=== PATIENT | male | born 1980 | race Caucasian/White ===

== ENCOUNTER 2020-11-11 15:35 | Outpatient (CLI) | payer OTHER, SELFPAY ==
[2020-11-11 16:28] LABS: SARS-CoV-2 Ag Negative (Negative)
== END 2020-11-11 15:36 | disposition home or self-care (01) ==
LOC: CHSLAB 15:42
PROVIDERS: PCP Internal Medicine; Visit Provider Internal Medicine
DX: R09.81 Nasal congestion (principal); Z20.828 Contact with and (suspected) exposure to other viral communicable diseases
CPT/HCPCS: 87426

== ENCOUNTER 2021-03-27 15:00 | Outpatient (CLI) | payer OTHER, SELFPAY ==
--- NOTE | ~2021-03-27 | XR_ITS ---
XR lumbar spine 2-3V 03/27/2021 15:14 Indication: Low back pain for 3 days Procedure: 3 views lumbar spine Comparison: No prior studies for comparison. Findings: Mild levocurvature of the lumbar spine. There is disc narrowing at L5-S1. 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 No acute fracture is identified. Impression: 1: Mild lumbar spondylosis with grade 2 spondylolisthesis at L5-S1. Reviewed, dictated and finalized at location B. Impression: 1: Mild lumbar spondylosis with grade 2 spondylolisthesis at L5-S1.
== END 2021-03-27 15:01 | disposition home or self-care (01) ==
LOC: CHSIMG 15:02
PROVIDERS: PCP Internal Medicine; Visit Provider Nurse Practitioner Family
DX: M54.5 Low back pain (principal)
CPT/HCPCS: 72100

== ENCOUNTER 2022-10-03 12:50 | Emergency (ER) | payer OTHER, SELFPAY ==
--- NOTE | ~2022-10-03 | CT_ITS ---
EXAMINATION: CT abdomen pelvis wo con DATE: 10/03/2022 15:02 INDICATION: RLQ abd pain SINCE THIS AM. RBC's in urine TECHNIQUE: Computed tomography (CT) of the abdomen and pelvis was performed without intravenous contr ast. Automated exposure control and iterative reconstruction technique were employed. The dose-length product was 1061.66 mGy-cm. COMPARISON: None. FINDINGS: Lower thorax: 4 mm peripheral right lower lobe nodule, likely lymph node. Mild aortic valve calcifica tion. In the right lung base. Bibasilar atelectasis. Gynecomastia. Liver: Enlarged. Diffuse fatty infiltration. Biliary/Gallbladder: Gallbladder is normal. No bile duct dilation. Pancreas: No mass or duct dilation. Spleen: Normal. Adrenals:No mass. Kidneys: No suspicious mass. Moderate right perinephric stranding. Mild right hydronephrosis. 4 mm no nobstructing right midpole calcification. GI tract: No small or large bowel dilation. Normal appendix. Mesentery/Peritoneum: No ascites, mass, or free air. Retroperitoneum: No mass. Pelvis: 3 mm stone at the right UVJ. Partially filled bladder. Mild bladder wall thickening and infla mmation. Enlarged prostate. Soft Tissues: Small uncomplicated fat-containing umbilical and left inguinal hernias Bones: No acute osseous finding. Grade 1 anterolisthesis and bilateral pars defects at L5-S1. IMPRESSION: 3 mm right UVJ stone causing mild obstructive uropathy. Hepatomegaly. Steatosis. [facility] IMPRESSION: 3 mm right UVJ stone causing mild obstructive uropathy. Hepatomegaly. Steatosis .
[2022-10-03 13:09] VITALS: BP 163/99; PULSE 76; RESP 24; TEMP 36.6; O2SAT 98
--- NOTE | 2022-10-03 13:20 | ED.ABDPAIN ---
HPI - Abdominal Pain General Chief Complaint: Abdominal Pain Stated Complaint: right side severe pain Time Seen by Provider: 10/03/22 13:20 Source: patient and RN notes reviewed Mode of arrival: ambulatory Limitations: no limitations History of Present Illness MD elicited complaint: abdominal pain Pertinent past history: none Onset (ago): hour(s) (10) Pain Consistency: constant Location: RLQ Severity: moderate Quality: stabbing and sharp Radiation: RLQ Migration to: no migration Exacerbating factors: nothing Relieving factors: nothing Associated symptoms: vomiting, diarrhea, chills ( and hot flashes) and dysuria ( only urgency and small amounts of urine) Related Data Allergies Allergy/AdvReac Type Severity Reaction Status Date / Time No Known Allergies Allergy Verified 10/03/22 15:15 Review of Systems Review of Systems: All systems reviewed & are unremarkable except as noted in HPI and below PMFSH Past Medical History Medical History (Updated 10/03/22 @ 15:32 by Iraj Gautam MD) Kidney stones Surgical History Surgical History (Updated 10/03/22 @ 13:54 by Iraj Gautam MD) No pertinent past surgical history Social History Social History (Updated 10/03/22 @ 13:54 by Iraj Gautam MD) Smoking status: Never smoker Substance use: never Exam Const: General: no acute distress, alert and ill appearing ( appears in pain) acutely Nutritional Appearance: well nourished and obese centrally obese Orientation/consciousness: patient oriented x3 Limitations: no limitations HENMT: Head: normal to inspection Ears: external ears normal Face/Nose/Sinus: Normal external nose present Face and sinus: normal facial exam Mouth: Yes moist mucous membranes Eyes: Conjunctivae: conjunctivae normal Pupils: Equal, round and reactive pupils present EOM: EOMs intact bilaterally Neck: Neck: normal visual inspection Resp: Effort & Inspection: normal respiratory effort Auscultation: clear to auscultation bilaterally Cardio: Rate: regular rate Rhythm: regular rhythm GI: GI Palp: Yes Soft to palpation, Yes Tenderness to palpation present (GI) ( moderate right lower quadrant), Yes Guarding due to palpation present (GI) ( mild right lower quadrant) and No Rebound tenderness present Auscultation: normal bowel sounds Back/Spine/Pelvis: Back: no CVA tenderness Cervical Spine: cervical ROM normal Thoracic/Lumbar Spine: thoraco-lumbar ROM normal Skin: General skin exam: normal color Rashes: no rashes Wounds: no wounds Neuro: General: patient oriented x3, moves all extremities, no focal motor deficits and CN's II-XI intact bilaterally Speech: normal speech Gait exam (Neuro): Normal gait present Extrem: General: normal to inspection and no clubbing, cyanosis or edema Psych: Mental Status: mental status grossly normal Affect: normal affect Attitude: cooperative Course Vital Signs Vital signs: Vital Signs Temperature 36.6 C 10/03/22 13:09 Pulse Rate 76 10/03/22 13:09 Respiratory Rate 24 H 10/03/22 13:09 Blood Pressure 163/99 H 10/03/22 13:09 Pulse Oximetry 98 10/03/22 13:09 Oxygen Delivery Room Air 10/03/22 13:09 Temperature 36.6 C 10/03/22 15:33 Pulse Rate 86 10/03/22 15:33 Respiratory Rate 20 10/03/22 15:33 Blood Pressure 157/91 H 10/03/22 15:33 Pulse Oximetry 97 10/03/22 15:33 Oxygen Delivery Room Air 10/03/22 15:33 MDM - Abdominal Pain Differential Diagnosis Differential diagnosis: Likely acute appendicitis, calculus of kidney, diverticulitis and small bowel obstruction Lab Data Attestation: I reviewed the patient's lab results. Result diagrams: 10/03/22 13:45 10/03/22 13:45 Labs: Lab Results 10/03/22 10/03/22 10/03/22 Range/Units 13:45 13:45 13:45 WBC 17.4 H (4.8-10.8) K/mm3 RBC 5.04 (4.70-6.10) M/mm3 Hgb 14.0 (14.0-18.0) g/dL Hct 43.0 (40.0-54.0) % MCV 85.3 (78.0-102.0) fL MCH 27.8 (2
[2022-10-03 13:47] LABS: Basophils Absolute Auto 0.05 K/mm3 (0.00-0.10); Basophils Percent Auto 0.3 % (0.0-1.0); Eosinophils Absolute Auto 0.01 K/mm3 (0.02-0.50); Eosinophils Percent Auto 0.1 % (1.0-6.0); Immature Granulocyte Absolute 0.19 K/mm3 (0.00-0.00); Immature Granulocyte Percent A 1.1 % (0.0-0.0); Lymphocytes Absolute Auto 0.87 K/mm3 (1.10-4.50); Mean Corpuscular HGB Conc 32.6 g/dL (32.0-36.0); Mean Corpuscular Hemoglobin 27.8 pg (27.0-31.0); Mean Corpuscular Volume 85.3 fL (78.0-102.0); Mean Platelet Volume 9.8 fl (8.7-11.0); Monocytes Absolute Auto 0.78 K/mm3 (0.10-0.90); Monocytes Percent Auto 4.5 % (2.0-11.0); Neutrophils Absolute Auto 15.5 K/mm3 (1.7-7.2); Platelet Count Result 388 K/mm3 (150-420); Red Blood Count 5.04 M/mm3 (4.70-6.10); Red Cell Distribution Width 13.8 % (11.6-14.4); White Blood Count 17.4 K/mm3 (4.8-10.8)
[2022-10-03 14:06] LABS: Alanine Aminotransferase 68 U/L (16-63); Albumin Level 4.5 g/dL (3.4-5.0); Alkaline Phosphatase 69 U/L (46-116); Anion Gap 15 mmol/L (8-16); Aspartate Amino Transferase 21 U/L (15-37); Bilirubin,Total 0.8 mg/dL (0.00-1.00); Blood Urea Nitrogen 15 mg/dL (7-18); CRP 0.5 mg/dL (0.0-0.9); Calcium 9.6 mg/dL (8.5-10.1); Carbon Dioxide 22 mmol/L (21-32); Chloride 103 mmol/L (98-108); Estimated CRCL calculation 66 ml/min; Estimated Glomerular Filt Rate 42; Glucose 132 mg/dL (70-99); Lipase 87 U/L (73-393); Osmolality Calculated 292 mOsm/kg (285-295); Potassium 4.7 mmol/L (3.5-5.1); Sodium 140 mmol/L (136-145); Total Protein 8.1 g/dL (6.4-8.2)
[2022-10-03 14:09] LABS: Lactic Acid Reflex 3.5 mmol/L (0.4-2.0)
--- NOTE | 2022-10-03 14:21 | PC.NURSE ---
1400 pt given ice chips, 1420 tolerating ice chips
--- NOTE | 2022-10-03 14:26 | PC.NURSE ---
pt resting per cot, no complaint of pain, states im almost asleep.
[2022-10-03 14:28] LABS: Add Urine Microscopic? YES; Bilirubin Urine Negative (Negative); Blood Urine 3+ (Negative); Color Urine Yellow (Yellow); Glucose Urine UA Negative (Negative); Ketones Urine 2+ (Negative); Leukocyte Esterase Ur Negative LEU/UL (Negative); Nitrate Urine Negative (Negative); Protein Urine Trace (Negative); Urobilinogen Urine 0.2 mg/dL (0.2-1.0)
[2022-10-03 14:37] LABS: Amorphous Sediment Urine Heavy; Appearance Urine Slightly Cloudy (Clear); Bacteria Urine 1+ /hpf; Mucus Urine Heavy /lpf; Squamous Epithelial Cell Urine Occasional /hpf (Few)
[2022-10-03] MEDS: KETOROLAC 30 MG/ML VIAL (*BKC) IV PUSH (15:26)
[2022-10-03] MEDS: TAMSULOSIN HCL 0.4 MG CAPSULE PO (15:31)
[2022-10-03 15:33] VITALS: BP 157/91; PULSE 86; RESP 20; TEMP 36.6; O2SAT 97
[2022-10-03 16:46] LABS: Reflex Lactic Acid Yes or No Add Lactic
== END 2022-10-03 15:44 | disposition home or self-care (01) ==
PROVIDERS: Emergency Provider Emergency Medicine; PCP Internal Medicine
DX: N20.1 Calculus of ureter (principal)
CPT/HCPCS: 36415; 74176; 80053; 81001; 83605; 83690; 85025; 86140; 96374; 99284; A9270; J1885

== ENCOUNTER 2024-03-03 13:14 | Emergency (ER) | payer OTHER, SELFPAY ==
--- NOTE | ~2024-03-03 | CT_ITS ---
EXAMINATION: CT abdomen pelvis wo con DATE: 03/03/2024 13:58 INDICATION: Right lower quadrant abdominal pain, nausea and vomiting for one day TECHNIQUE: Computed tomography (CT) of the abdomen and pelvis was performed without intravenous contr ast. Automated exposure control and iterative reconstruction technique were employed. Exam dose: 956 .07 mGy-cm total exam DLP. COMPARISON: 10/03/2022 CT abdomen pelvis FINDINGS: There is minimal infiltrate or atelectasis in both dependent basilar lower lobes. Normal heart size. No pericardial or pleural effusion. Small sliding hiatal hernia. There is diffuse hepatic steatosis, with minimal sparing in the area around the gallbladder. No hepat ic, splenic, pancreatic, and adrenal or renal space-occupying mass lesion is evident on this limited noncontrast examination. The gallbladder appears unremarkable. No bile duct or pancreatic duct dilatation. There is an approximately 3.6 mm distal right ureteral calculus with moderate right hydroureteronephr osis and right perinephric stranding. No other urinary tract calculus. Normal caliber of the abdominal aorta. No intraperitoneal or retroperitoneal or pelvic mass lesion or adenopathy or ascites. The urinary bladder and prostate gland are unremarkable. Small fat-containing left inguinal hernia. Small fat-containing umbilical hernia. No evidence of appendicitis. No bowel obstruction or intraperitoneal free air. Bilateral L5 pars interarticularis defects with grade 1 anterolisthesis at L5-S1 Moderately severe degenerative disc disease at L5-S1. IMPRESSION: 3.6 mm distal right ureteral calculus with moderate right hydroureteronephrosis, right p erinephric stranding Reviewed, dictated and finalized at [facility]. Reviewed, dictated and finalized at location A. IMPRESSION: 3.6 mm distal right ureteral calculus with moderate right hydroure teronephrosis, right perinephric stranding
[2024-03-03 13:14] VITALS: BP 162/89; PULSE 93; RESP 18; TEMP 36.8; O2SAT 97
--- NOTE | 2024-03-03 13:28 | ED.ABDPAIN ---
HPI - Abdominal Pain General Chief Complaint: Abdominal Pain Stated Complaint: abd pain Source: patient Mode of arrival: ambulatory Limitations: no limitations History of Present Illness HPI narrative: 43-year-old white male complains right lower quadrant the John pain it started this morning associated with nausea and vomiting no problems urinating. Last bowel movement was normal this morning. Feels like a kidney stone that he had like the last time he was here. Denies any cough fever sore throat runny nose problems voiding or stooling. Dizziness or lightheadedness or any other complaints. Related Data Allergies Allergy/AdvReac Type Severity Reaction Status Date / Time No Known Allergies Allergy Verified 03/03/24 13:17 Review of Systems Review of Systems: All systems reviewed & are unremarkable except as noted in HPI and below PMFSH Past Medical History Medical History Kidney stones Surgical History Surgical History No pertinent past surgical history Social History Social History Smoking status: Never smoker Substance use: never Comments history kidney stone 3 mm in 2021 Exam Narrative: White male patient with no apparent distress.? Head normocephalic, atraumatic.? Eyes conjunctiva pink sclera nonicteric.? Extraocular movements are intact.? Ears externally normal.? Oropharynx is clear with moist mucous membranes without exudates.? Neck is supple nontender no lymphadenopathy.? Back is nontender.? Lungs are clear.? Heart is regular rate and rhythm without murmurs gallops or rubs.? Chest wall nontender.? Back is nontender. Abdomen is soft and with tenderness to the right lower quadrant without rebound. Negative Olmedo sign, no hepatosplenomegaly or masses no CVA tenderness no abdominal bruits.? Extremities no cyanosis clubbing or edema.? Skin is warm and dry without rashes or lesions.? Neurological patient is alert and oriented x4.? Motor and sensory grossly intact.? Gait is normal. Course Vital Signs Vital signs: Vital Signs Temperature 36.8 C 03/03/24 13:14 Pulse Rate 93 03/03/24 13:14 Respiratory Rate 18 03/03/24 13:14 Blood Pressure 162/89 H 03/03/24 13:14 Pulse Oximetry 97 03/03/24 13:14 Oxygen Delivery Room Air 03/03/24 13:14 Temperature 37.6 C H 03/03/24 14:35 Pulse Rate 92 03/03/24 14:35 Respiratory Rate 18 03/03/24 14:35 Blood Pressure 148/87 H 03/03/24 14:35 Pulse Oximetry 100 03/03/24 14:35 Oxygen Delivery Room Air 03/03/24 14:35 MDM - Abdominal Pain MDM Narrative Medical decision making narrative: Patient was placed in Room # Four normal lipase, wbc's 17.6 rest of CMP was normal. BUN was 19 creatinine 1.73 rest her CMP was normal. Urinalysis showed 3-5 rbc's with trace bacteria CT abdomen pelvis without contrast showed:3.6 mm distal right ureteral calculus with moderate right hydroureteronephrosis, right perinephric stranding Independent Historian: patient External Source Review: CT scan from 2021 Differential Dx includes but not limited to: UTI cholelithiasis appendicitis Medications were Reviewed: home meds reviewed Independently Interpreted by me: Meds, treatment, ED course: Toradol 30 mg Pain is down to a 0201 at discharge Social Situation Impacting Patients Care: previous kidney stone Shared decision Making: evaluation was discussed all questions were asked and answered and patient agreed with the plan. You take Toradol 10 mg every 6 hours and/or Zofran for nausea vomiting and follow-up with his primary care provider strain his urine collect any stone and take it to the provider for analysis. He will increase his fluids by mouth. Would take Cipro 250 twice a day for 3 days. DISCHARGE DIAGNOSIS: 3.6 mm distal right ureteral calculus with moderate right hydro
[2024-03-03 13:58] LABS: Appearance Urine Clear (Clear); Bilirubin Urine Negative (Negative); Blood Urine Trace-intact (Negative); Color Urine Light Yellow (Yellow); Glucose Urine UA Negative (Negative); Ketones Urine Negative (Negative); Leukocyte Esterase Ur Negative LEU/UL (Negative); Nitrate Urine Negative (Negative); Protein Urine Negative (Negative); Urobilinogen Urine 0.2 mg/dL (0.2-1.0)
[2024-03-03] MEDS: KETOROLAC 30 MG/ML VIAL (*BKC) IM (14:01)
[2024-03-03 14:12] LABS: Hematocrit 45.5 % (40.0-54.0); Hemoglobin 14.4 g/dL (14.0-18.0); Mean Corpuscular HGB Conc 31.6 g/dL (32-36); Mean Corpuscular Hemoglobin 27.4 pg (27.0-31.0); Mean Corpuscular Volume 86.5 fL (78.0-102.0); Mean Platelet Volume 9.7 fl (8.7-11.0); Platelet Count Result 373 K/mm3 (150-420); Red Blood Count 5.26 M/mm3 (4.70-6.10); Red Cell Distribution Width 13.5 % (11.6-14.4); White Blood Count 17.6 K/mm3 (4.8-10.8)
[2024-03-03 14:15] LABS: Add Urine Microscopic? YES; Bacteria Urine Trace /hpf; Squamous Epithelial Cell Urine Rare /hpf (Few); WBC Urine None seen /hpf (0-3)
[2024-03-03 14:28] LABS: Alanine Aminotransferase 41 U/L (16-63); Albumin Level 4.5 g/dL (3.4-5.0); Alkaline Phosphatase 79 U/L (46-116); Anion Gap 15 mmol/L (4-12); Aspartate Amino Transferase 17 U/L (15-37); Bilirubin,Total 0.7 mg/dL (0.00-1.00); Blood Urea Nitrogen 19 mg/dL (7-18); Calcium 9.7 mg/dL (8.5-10.1); Carbon Dioxide 24 mmol/L (21-32); Chloride 101 mmol/L (98-108); Estimated Glomerular Filt Rate 44; Glucose 118 mg/dL (70-99); Lipase 30 U/L (16-77); Osmolality Calculated 293 mOsm/kg (285-295); Potassium 4.9 mmol/L (3.5-5.1); Sodium 140 mmol/L (136-145); Total Protein 8.1 g/dL (6.4-8.2)
[2024-03-03 14:35] VITALS: BP 148/87; PULSE 92; RESP 18; TEMP 37.6; O2SAT 100
== END 2024-03-03 15:35 | disposition home or self-care (01) ==
PROVIDERS: Emergency Provider Emergency Medicine; PCP Internal Medicine
DX: N20.1 Calculus of ureter (principal)
CPT/HCPCS: 36415; 74176; 80053; 81001; 83690; 85027; 96372; 99284; J1885

== ENCOUNTER 2024-03-08 14:06 | Outpatient (CLI) | payer OTHER, SELFPAY ==
--- NOTE | ~2024-03-08 | US_ITS ---
US retroperitoneal comp 03/08/2024 14:56 Procedure: Realtime transabdominal ultrasound of the kidneys and bladder. Indication: Distal right ureteral stone seen on prior examination Comparison: CT dated 03/03/2024 Findings: Renal echotexture is normal bilaterally without contour deforming mass or renal calculus. T here is mild right hydronephrosis. The right kidney measures 13.3 cm and left kidney measures 12.3 cm . Bladder within normal limits. Right ureteral jet not visualized. Impression: 1: Mild right hydronephrosis. Reviewed, dictated and finalized at location A. Impression: 1: Mild right hydronephrosis.
[2024-03-08 15:09] LABS: Alanine Aminotransferase 37 U/L (16-63); Albumin Level 4.2 g/dL (3.4-5.0); Alkaline Phosphatase 84 U/L (46-116); Anion Gap 10 mmol/L (4-12); Aspartate Amino Transferase 18 U/L (15-37); Bilirubin,Total 1.4 mg/dL (0.00-1.00); Blood Urea Nitrogen 20 mg/dL (7-18); Calcium 8.9 mg/dL (8.5-10.1); Carbon Dioxide 28 mmol/L (21-32); Chloride 100 mmol/L (98-108); Estimated Glomerular Filt Rate 42; Glucose 92 mg/dL (70-99); Osmolality Calculated 288 mOsm/kg (285-295); Potassium 4.4 mmol/L (3.5-5.1); Sodium 138 mmol/L (136-145); Total Protein 7.5 g/dL (6.4-8.2)
== END 2024-03-08 14:07 | disposition home or self-care (01) ==
LOC: CHSIMG 14:11
PROVIDERS: PCP Internal Medicine; Visit Provider Internal Medicine
DX: N20.0 Calculus of kidney (principal); R94.4 Abnormal results of kidney function studies; N13.30 Unspecified hydronephrosis
CPT/HCPCS: 36415; 76770; 80053

== ENCOUNTER 2024-03-12 15:03 | Outpatient (CLI) | payer OTHER, SELFPAY ==
--- NOTE | ~2024-03-12 | XR_ITS ---
EXAMINATION: XR abdomen/kub 1V DATE: 03/12/2024 15:18 INDICATION: Right flank pain. Kidney stone. TECHNIQUE: A supine view of the abdomen on 2 radiographs was obtained. COMPARISON: CT abdomen and pelvis 03/03/2024 FINDINGS: There are no dilated loops of bowel. There is a 4 mm stone in distal right ureter. IMPRESSION: 1. 4 mm stone in distal right ureter. Reviewed, dictated and finalized at location E.
== END 2024-03-12 15:04 ==
PROVIDERS: PCP Urology; Visit Provider Urology
DX: N20.0 Calculus of kidney (principal)
CPT/HCPCS: 74018

== ENCOUNTER 2025-04-04 17:40 | Emergency (ER) | payer OTHER, SELFPAY ==
--- NOTE | ~2025-04-04 | XR_ITS ---
HISTORY: knee injury, PAIN ANTERIOR COMPARISON: None TECHNIQUE: 3 views of the left knee were performed FINDINGS: No acute or subacute fracture. Medial tibiofemoral joint space narrowing is identified. No suprapatellar joint effusion is identified. The infrapatellar joint space is clear. Ossification of the insertion of the quadriceps tendon is present. IMPRESSION: Degenerative disease, without acute fracture. Reviewed, dictated and finalized at location A.
[2025-04-04 17:43] VITALS: BP 145/87; PULSE 76; RESP 18; TEMP 36.4; O2SAT 97
[2025-04-04] MEDS: KETOROLAC (*BKC) 60 MG/2 ML VIAL IM (18:11)
--- OUTSIDE RECORDS SUMMARY | 2025-04-04 18:22 | XMS_ITS | Clinical Summary ---
Author Organization [facility] [place] Address [address] [address] Care Team Providers Care Study Director Name Role Phone Unavailable Primary Care Provider Unavailabl e Social History Tobacco Use Types Packs/Day Years Used Date Smoking Tobacco: Never Assessed Sex and Gender Information Value Date Recorded Sex Assigned at Not on file Legal Sex Male 1:06 AM CDT Gender Identity Not on file Sexual Orientation Not on file Plan of Treatment Upcoming Encounters Date Type Department Care Team (Late st Contact Info) Description 05/06/2025 1:40 PM CDT Office Visit [facility] [employer] [address] [place] [address] Health Maintenance Due Date Last Done Comments DTAP/TDAP/TD VACCINES (1 - Tdap) 2001 HEPATITIS B VACCINES (1 of 3 - 19+ 3-dose series) 2001 INFLUENZA VACCINE (#1) 2024 HPV VACCINES Aged Out No longer eligi ble based on patient's age to complete this topic
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
[2025-04-04 18:53] VITALS: BP 130/66; PULSE 77; RESP 20; TEMP 37; O2SAT 95
== END 2025-04-04 18:53 | disposition home or self-care (01) ==
PROVIDERS: Emergency Provider Emergency Medicine; PCP Internal Medicine
DX: S83.8X2A Sprain of other specified parts of left knee, initial encounter (principal); X58.XXXA Exposure to other specified factors, initial encounter
CPT/HCPCS: 73562; 96372; 99283; J1885

== ENCOUNTER 2025-09-15 12:59 | Emergency (ER) | payer OTHER, SELFPAY ==
--- NOTE | ~2025-09-15 | XR_ITS ---
Examination: XR chest 1V portable Clinical History: cough x1 week Comparison: None Technique: Portable AP Findings: Heart size normal. Lungs clear. No acute bony abnormality. IMPRESSION: 1. No acute cardiopulmonary findings given portable technique. Reviewed, dictated and finalized at location R.
[2025-09-15 12:59] VITALS: BP 132/81; PULSE 88; RESP 18; TEMP 37; O2SAT 97
--- OUTSIDE RECORDS SUMMARY | 2025-09-15 13:06 | XMS_ITS | Patient Health Record ---
Author Organization [facility] Address [address] [place], [place] [id number] Support Name Relationship Address Phone DAVIDE RIVERS Emergency Contact Unknown MARIBELL RHODES Guarantor Unknown [phone] Reason For Referral No Information Plan Of Treatment No Information
--- OUTSIDE RECORDS SUMMARY | 2025-09-15 13:06 | XMS_ITS | Clinical Summary ---
Author Organization [email or web address] [place] Address [address] [place] [id number] Care Team Providers Care Doll Eye Setter Name Role Phone Unavailable Primary Care Provider Unavailabl e Active Problems No known active problems Social History Tobacco Use Types Packs/Day Years Used Date Smoking Tobacco: Never Assessed Sex and Gender Information Value Date Recorded Sex Assigned at Not on file Legal Sex Male 1:06 AM CDT Gender Identity Not on file Sexual Orientation Not on file Last Filed Vital Signs Vital Sign Reading Time Taken Comments Blood Pressure 124/86 05/06/2025 1:50 PM CDT Pulse - - Temperature - - Respiratory Rate - - Oxygen Saturation - - Inhaled Oxygen Concentration - - Weight 112.9 kg (249 lb) 05/06/2025 1:50 PM CDT Height 188 cm (6' 2) 05/06/2025 1:50 PM CDT Body Mass Index 31.97 05/06/2025 1:50 PM CDT Plan of Treatment Health Maintenance Due Date Last Done Comments Pre-Diabetes and Diabetes Screening 1982 DTAP/TDAP/TD VACCINES (1 - Tdap) 2001 HEPATITIS B VACCINES (1 of 3 - 19+ 3-dose series) 04/29 HPV VACCINES (1 - 3-dose SCDM series) 2009 INFLUENZA VACCINE (#1) 2025 Insurance [employer] OPEN ACCESS
--- NOTE | 2025-09-15 13:14 | ED_ITS ---
HPI - General Adult General Chief complaint: Upper Respiratory Infection Stated complaint: cough x 4 days Time Seen by Provider: 09/15/25 13:14 History of Present Illness HPI narrative: Alan is a 45M with a PMH of ureterolithiasis that presented with cough, congestion, subjective fevers aches and fatigue for 3 days. No severe dyspnea or chest pain. He reports contacts at work have had COVID, and a virus. No vomiting or diarrhea. Related Data Allergies Allergy/AdvReac Type Severity Reaction Status Date / Time No Known Allergies Allergy Verified 09/15/25 13:25 Review of Systems Review of Systems: All systems reviewed & are unremarkable except as noted in HPI and below PMFSH Past Medical History Medical History Kidney stones Surgical History Surgical History No pertinent past surgical history Social History Social History Smoking status: Never smoker Substance use: never Exam Const: General: cooperative, healthy appearing, comfortable, no acute distress, well developed, alert, awake and Physically active Orientation/consciousness: oriented to person, oriented to place and oriented to time HENMT: Head: normal to inspection, normocephalic and atraumatic Ears: hearing grossly normal bilaterally and external ears normal Face/Nose/Sinus: Normal external nose present Other: rhinorrhea Eyes: General: appearance normal, both eyes and all related structures Periorbital: periorbital findings normal Sclera: sclerae normal Pupils: Equal, round and reactive pupils present Neck: Neck: normal visual inspection Chest: Chest palpation & inspection: normal inspection of the chest Resp: Effort & Inspection: normal respiratory effort, able to speak in complete sentences and no respiratory distress Auscultation: clear to auscultation bilaterally Cardio: Jugular venous distension: no JVD Rate: regular rate Rhythm: regular rhythm GI: Inspection: normal to inspection GI Palp: Yes Soft to palpation Auscultation: normal bowel sounds Skin: General skin exam: normal color and no rashes or lesions noted Neuro: General: oriented to person, oriented to place and oriented to time Cranial nerves: Yes Equal, round and reactive pupils present Extrem: General: normal to inspection Course Course Emergency Course: ordered CXR. IMPRESSION: 1. No acute cardiopulmonary findings given portable technique. Vital Signs Vital signs: Vital Signs Temperature 98.6 F 09/15/25 12:59 Pulse Rate 88 09/15/25 12:59 Respiratory Rate 18 09/15/25 12:59 Blood Pressure 132/81 09/15/25 12:59 Pulse Oximetry 97 09/15/25 12:59 Oxygen Delivery Room Air 09/15/25 12:59 Temperature 98.6 F 09/15/25 12:59 Pulse Rate 88 09/15/25 12:59 Respiratory Rate 18 09/15/25 12:59 Blood Pressure 132/81 09/15/25 12:59 Pulse Oximetry 97 09/15/25 12:59 Oxygen Delivery Room Air 09/15/25 13:18 Medical Decision Making Vital Signs Vital Signs: Vital Signs Temperature 98.6 F 09/15/25 12:59 Pulse Rate 88 09/15/25 12:59 Respiratory Rate 18 09/15/25 12:59 Blood Pressure 132/81 09/15/25 12:59 Pulse Oximetry 97 09/15/25 12:59 Oxygen Delivery Room Air 09/15/25 12:59 Temperature 98.6 F 09/15/25 12:59 Pulse Rate 88 09/15/25 12:59 Respiratory Rate 18 09/15/25 12:59 Blood Pressure 132/81 09/15/25 12:59 Pulse Oximetry 97 09/15/25 12:59 Oxygen Delivery Room Air 09/15/25 13:18 Lab Data Labs: Lab Results 09/15/25 Range/Units 13:49 Influenza A (RT-PCR) Negative (Negative) Influenza B (RT-PCR) Negative (Negative) RSV (RT-PCR) Negative (Negative) SARS-CoV-2 RNA (RT-PCR) Negative (Negative) Discharge Plan Discharge Clinical Impression: URI (upper respiratory infection) Patient Disposition: Home Condition: Stable Instructions: Antibiotic Form Patient Language: [place] Prescriptions: New ipratropium bromide 42 mcg (0.06 %) spray,non-aerosol 2 spray intranasal TID Qty: 15 0RF Rx Instructions: administer into each nostril benzonatate 200 mg capsule 200 mg PO BID PRN (Reason: cough) Qty: 30 0RF No Action tramadol 50 mg tablet 50 mg PO Q6H PRN (Reason: pain) Qty: 20 0RF Follow-up/Referrals: Gwendolyn Pringle MD [Primary Care Provider, Internal Medicine]
[2025-09-15 13:55] LABS: Influenza A QL RT-PCR Negative (Negative); Influenza B QL RT-PCR Negative (Negative); RSV RNA, RT-PCR Negative (Negative); SARS-CoV-2 RNA PCR Negative (Negative)
== END 2025-09-15 14:00 | disposition home or self-care (01) ==
PROVIDERS: Emergency Provider Family Medicine; PCP Internal Medicine
DX: J06.9 Acute upper respiratory infection, unspecified (principal); Z20.822 Contact with and (suspected) exposure to COVID-19
CPT/HCPCS: 71045; 87637; 99283